=== PATIENT | male | born 1970 | race American Indian/Alaskan Native ===

== ENCOUNTER 2017-01-22 20:30 | Emergency (ER) | payer OTHER ==
[2017-01-23 01:11] VITALS: BP 131/92
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
== END 2017-01-23 07:12 | disposition left against medical advice (07) ==
LOC: ED 20:30
DX: Z04.1 Encounter for examination and observation following transport accident (principal); Z53.21 Procedure and treatment not carried out due to patient leaving prior to being seen by health care provider
CPT/HCPCS: 93005; 93010

== ENCOUNTER 2017-01-23 18:49 | Emergency (ER) | payer OTHER ==
[2017-01-23 19:06] VITALS: BP 152/93
[2017-01-23] MEDS ORDERED: TORADOL IM ONE (20:56)
[2017-01-23] MEDS ORDERED: NORCO 5/325 PO ONE (20:56)
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
== END 2017-01-23 21:20 | disposition home or self-care (01) ==
LOC: ED 18:49
DX: S39.012A Strain of muscle, fascia and tendon of lower back, initial encounter (principal); S20.211A Contusion of right front wall of thorax, initial encounter; S20.212A Contusion of left front wall of thorax, initial encounter; V89.2XXA Person injured in unspecified motor-vehicle accident, traffic, initial encounter; Y93.89 Activity, other specified; Y92.89 Other specified places as the place of occurrence of the external cause; Y99.8 Other external cause status
CPT/HCPCS: 96372; 99282; J1885